=== PATIENT | male | born 1995 | race Caucasian/White ===

== ENCOUNTER 2016-06-19 19:29 | Emergency (ER) | payer OTHER ==
[~2016-06-19] VITALS: Ht 170.2 cm; Wt 77.7 kg
[2016-06-19] MEDS ORDERED: MORPHINE SULFATE 4 MG/ML, 1ML IVPush PRN (20:30)
[2016-06-19] MEDS ORDERED: PLEASE ENTER ALLERGIES MC SCH ×2 (20:30)
[2016-06-19] MEDS ORDERED: ONDANSETRON 2MG/ML, 2ML IVPush ONE (20:30)
[2016-06-19] MEDS ORDERED: SODIUM CHLORIDE FLUSH 10ML SYR IVF ONE (20:30)
[2016-06-19] MEDS ORDERED: METF10002 PO (20:49)
[2016-06-19 20:56] LABS: HEMOGLOBIN 16.5 g/dL (13.7-18.0)
[2016-06-19] MEDS ORDERED: MORPHINE SULFATE 4 MG/ML, 1ML ONE (20:59)
[2016-06-19] MEDS ORDERED: ONDANSETRON 2MG/ML, 2ML ONE (20:59)
[2016-06-19 21:08] LABS: BLOOD UREA NITROGEN 14 mg/dL (7-18)
[2016-06-19 21:11] LABS: ASPARTATE AMINO TRANSFERASE 9 U/L (15-37)
[2016-06-19] MEDS ORDERED: SODIUM CHLORIDE 0.9% 1,000ML IVBOLUS ONE (21:30)
[2016-06-19] MEDS ORDERED: OMNIPAQUE 350 MG/ML, 100ML BOTTLE ONE (22:24)
[2016-06-19 23:28] VITALS: BP 123/85
== END 2016-06-19 23:28 | disposition home or self-care (01) ==
LOC: ED 21:34
DX: R10.31 Right lower quadrant pain (principal)
CPT/HCPCS: 36415; 74177; 80053; 81003; 83690; 85025; 96361; 96374; 96375; 99285; J2405; J7030; Q9967